=== PATIENT | male | born 1950 | race Caucasian/White ===

== ENCOUNTER 2019-09-07 14:40 | Outpatient (CLI) | payer OTHER, SELFPAY ==
--- NOTE | ~2019-09-07 | XR_ITS ---
EXAMINATION: XR sacroiliac joints min 3V DATE: 09/07/2019 16:02 INDICATION: Sacral pain. TECHNIQUE: 3 views of the sacroiliac joints were obtained. COMPARISON: CT 05/19/2019 FINDINGS: There is lumbar levocurvature. No fracture. There is mild lumbar spondylosis. There is mild osteoarthritis of the hips. The sacroiliac joints are normal. Surgical clips overlie left pelvis. IMPRESSION: 1. Normal sacroiliac joints. No evidence of inflammatory arthropathy. Reviewed, dictated and finalized at location A. CLEANING MANAGER
== END 2019-09-07 14:41 | disposition home or self-care (01) ==
LOC: ANHIMG 14:41
PROVIDERS: PCP Family Medicine; Visit Provider Family Medicine
DX: M53.3 Sacrococcygeal disorders, not elsewhere classified (principal)
CPT/HCPCS: 72202

== ENCOUNTER 2019-10-29 13:16 | Outpatient (CLI) | payer OTHER, SELFPAY ==
[2019-10-29 13:37] LABS: Basophils Absolute Auto 0.1 K/mm3 (0.0-0.1); Basophils Percent Auto 0.6 % (0.2-1.2); Eosinophils Percent Auto 0.2 % (0-4.4); Hematocrit 42.5 % (42.0-52.0); Hemoglobin 14.3 g/dL (14.0-18.0); Immature Granulocyte Absolute 0.01 K/mm3 (0.00-0.031); Immature Granulocyte Percent A 0.1 % (0-0.5); Lymphocytes Absolute Auto 5.81 K/mm3 (0.9-3.2); Lymphocytes Percent Auto 62.8 % (18.3-44.2); Mean Corpuscular HGB Conc 33.6 g/dl (32-36); Mean Corpuscular Hemoglobin 30.7 pg (26-34); Mean Corpuscular Volume 91.2 fl (80-100); Mean Platelet Volume 8.8 fl (7.4-10.4); Monocytes Absolute Auto 0.6 K/mm3 (0.1-0.6); Monocytes Percent Auto 6.8 % (2.6-8.5); Neutrophils Absolute Auto 2.7 K/mm3 (1.3-6.7); Neutrophils Percent Auto 29.5 % (45.5-73.1); Platelet Count Result 204 k/mm3 (150-375); Red Blood Count 4.66 M/mm3 (4.6-6.20); Red Cell Distribution Width 12.3 % (11.5-14.5); White Blood Count 9.3 K/mm3 (4.5-10.0)
[2019-10-29 15:58] LABS: Alanine Aminotransferase 29 U/L (4-50); Albumin Level 4.1 g/dL (3.5-5.1); Alkaline Phosphatase 63 U/L (38-126); Aspartate Amino Transferase 46 U/L (17-59); Bilirubin,Total 0.5 mg/dL (0.2-1.3); Blood Urea Nitrogen 18 mg/dL (9-20); Calcium 9.4 mg/dL (8.4-10.2); Carbon Dioxide 28 mmol/L (22-30); Chloride 104 mmol/L (98-107); Estimated Glomerular Filt Rate > 60; Glucose 91 mg/dL (75-110); Lactate Dehydrogenase 484 U/L (313-618); Potassium 4.2 mmol/L (3.4-5.0); Sodium 140 mmol/L (137-145)
== END 2019-10-29 13:17 | disposition home or self-care (01) ==
PROVIDERS: PCP Family Medicine; Visit Provider Internal Medicine Hematology & Oncology
DX: C91.Z0 Other lymphoid leukemia not having achieved remission (principal)
CPT/HCPCS: 36415; 80053; 83615; 85025

== ENCOUNTER 2020-05-01 16:57 | Emergency (ER) | payer OTHER, SELFPAY ==
[2020-05-01] VITALS (13 sets, daily range): BP systolic 122–181; BP diastolic 74–99; PULSE 81–125; RESP 14–27; TEMP 36.8–38.6; O2SAT 95–99
--- NOTE | ~2020-05-01 | XR_ITS ---
EXAMINATION: XR chest 1V portable INDICATION: Fever and body aches TECHNIQUE: Portable AP chest at 1835 hours COMPARISON: None available FINDINGS: The lungs are free of acute opacities. There is no pleural effusion or pneumothorax. The ca rdiomediastinal silhouette is normal. IMPRESSION: 1. No acute cardiopulmonary abnormality. Reviewed, dictated and finalized at location A.
[2020-05-01 17:17] LABS: Basophils Absolute Auto 0.1 K/mm3 (0.0-0.1); Basophils Percent Auto 0.4 % (0.2-1.2); Hematocrit 43.9 % (42.0-52.0); Immature Granulocyte Absolute 0.06 K/mm3 (0.00-0.031); Immature Granulocyte Percent A 0.5 % (0-0.5); Lymphocytes Absolute Auto 3.34 K/mm3 (0.9-3.2); Lymphocytes Percent Auto 27.2 % (18.3-44.2); Mean Corpuscular HGB Conc 34.2 g/dl (32-36); Mean Corpuscular Hemoglobin 30.8 pg (26-34); Mean Corpuscular Volume 90.1 fl (80-100); Mean Platelet Volume 9.1 fl (7.4-10.4); Monocytes Absolute Auto 0.6 K/mm3 (0.1-0.6); Neutrophils Absolute Auto 8.2 K/mm3 (1.3-6.7); Neutrophils Percent Auto 66.9 % (45.5-73.1); Platelet Count Result 208 k/mm3 (150-375); Red Blood Count 4.87 M/mm3 (4.6-6.20); Red Cell Distribution Width 12.1 % (11.5-14.5); White Blood Count 12.3 K/mm3 (4.5-10.0)
[2020-05-01 17:31] LABS: Alanine Aminotransferase 36 U/L (4-50); Albumin Level 4.6 g/dL (3.5-5.1); Alkaline Phosphatase 64 U/L (38-126); Anion Gap 9 mmol/L (8-16); Aspartate Amino Transferase 33 U/L (17-59); Bilirubin,Total 0.8 mg/dL (0.2-1.3); Blood Urea Nitrogen 15 mg/dL (9-20); Calcium 9.6 mg/dL (8.4-10.2); Carbon Dioxide 31 mmol/L (22-30); Chloride 102 mmol/L (98-107); Estimated CRCL calculation 67 ml/min; Estimated Glomerular Filt Rate > 60; Glucose 142 mg/dL (75-110); Sodium 142 mmol/L (137-145)
--- NOTE | 2020-05-01 18:01 | ECG_ITS ---
Measurements Intervals [place] Rate: 101 P: 64 PA: 178 QRS: 27 QRSD: 89 T: 52 QT: 326 QTc: 423 Interpretive Statements SINUS TACHYCARDIA BORDERLINE ECG Electronically Signed On 05-02-2020 12:04:51 CDT by Cyril Ngo D.O.
--- NOTE | 2020-05-01 18:16 | ED.GENADULT ---
HPI - General Adult General Chief complaint: Fever Stated complaint: body aches/fever 100.7 Time Seen by Provider: 05/01/20 17:56 Source: patient History of Present Illness HPI narrative: Patient is a 70 y/o male complaining of fever starting 2 days ago. He states that his temp was 100.7 earlier. He took Ibuprofen, which lower his temperature. He also has bodyache, dizziness. He denies any cough, sorethroat, vomiting, diarrhea or dysuria. Related Data Home Medications Medication Instructions Recorded Confirmed ketoconazole 2 % topical cream 1 applic TOPICAL BID 09/07/19 vitamin B complex [B 1 tablet PO DAILY 05/01/20 05/01/20 Complex-Vitamin B12] Allergies Allergy/AdvReac Type Severity Reaction Status Date / Time No Known Drug Allergies Allergy Unknown Unknown Verified 05/01/20 18:09 Review of Systems Constitutional: Constitutional: Reports chills, Reports fever(s), Reports headache(s), Reports malaise and Denies weakness Eyes: Eyes: Denies blurry vision ENT: Denies headache(s) and Denies neck pain Cardiovascular: Cardiovascular: Denies chest pain and Denies dyspnea Respiratory: Respiratory: Denies cough and Denies dyspnea Gastrointestinal: Gastrointestinal: Denies abdominal pain, Denies diarrhea, Denies nausea and Denies vomiting Genitourinary: Genitourinary: Denies hematuria and Denies dysuria Musculoskeletal: Musculoskeletal: Reports as per HPI, Denies back pain, Reports myalgias and Denies neck pain Neurologic: Denies headache(s) and Denies weakness [facility] Past Medical History Medical History Atypical lymphocytosis Diet-controlled type 2 diabetes mellitus GERD without esophagitis Surgical History Surgical History History of hernia repair Family History Family History Sibling Family history of malignant neoplasm Mother Family history of kidney disease Family history of heart disease in male family member before age 55 Hypertension Father Family history of emphysema Social History Social History Smoking status: Never smoker Second hand tobacco smoke exposure: No Alcohol intake: current Substance use: never Substance use type: does not use Additional living arrangements comments: Lives with girlfriend. Gender identity (if verbalized by the patient): Male Exam Const: General: no acute distress and well developed Orientation/consciousness: oriented to person, oriented to place, oriented to time and patient oriented x3 HENMT: Head: normocephalic Ears: external ears normal General nose exam: Normal external nose present Eyes: General: appearance normal, both eyes and all related structures Conjunctivae: conjunctivae normal Neck: Neck: normal visual inspection and full ROM Chest: Chest palpation & inspection: normal inspection of the chest and no tenderness Resp: Effort & Inspection: normal respiratory effort Auscultation: clear to auscultation bilaterally Cardio: Rate: tachycardic Rhythm: regular rhythm GI: GI Palp: No abdominal tenderness and Yes Soft to palpation Skin: General skin exam: normal color and turgor normal Neuro: General: oriented to person, oriented to place, oriented to time and patient oriented x3 Cognition (Neuro): normal cognition Extrem: General: normal to inspection, full ROM and no pedal edema Psych: Appearance: grossly normal Mental Status: mental status grossly normal Affect: normal affect Course Consultations Consultation #1: Discussed with Dr. Chen, who agrees with plan for discharge. He will follow up. Date: 05/01/20 Time: 20:47 Vital Signs Vital signs: Vital Signs Temperature 37.4 C 05/01/20 17:03 Pulse Rate 120 H 05/01/20 17:03 Respiratory Rate 16 05/01/20 17:03 Blood Pressure 181/99 H 05/01/20 17
[2020-05-01] MEDS: SODIUM CHLORIDE 0.9% IV 1,000 ML 999 ML IV CONT (19:05)
[2020-05-01] MEDS: ACETAMINOPHEN 325 MG TABLET 650 MG PO (19:05)
--- NOTE | 2020-05-01 19:09 | PC.NURSE ---
Assumed care of pt. at this time.Report from LENNY carlson
[2020-05-01 19:53] LABS: Add Urine Microscopic? NO; Appearance Urine Clear (Clear); Bilirubin Urine Negative (Negative); Blood Urine Negative (Negative); Color Urine Yellow (Yellow); Glucose Urine UA Negative (Negative); Ketones Urine Negative (Negative); Leukocyte Esterase Ur Negative LEU/UL (Negative); Nitrate Urine Negative (Negative); Protein Urine Negative (Negative); Specific Grav Ur 1.013 (1.001-1.035); Urobilinogen Urine Negative mg/dL (<2.0)
[2020-05-02 13:49] LABS: SARS-CoV-2 RNA PCR Negative
== END 2020-05-01 21:50 | disposition home or self-care (01) ==
PROVIDERS: Emergency Provider Emergency Medicine; PCP Family Medicine
DX: R50.9 Fever, unspecified (principal); Z20.828 Contact with and (suspected) exposure to other viral communicable diseases; E11.9 Type 2 diabetes mellitus without complications; K21.9 Gastro-esophageal reflux disease without esophagitis
CPT/HCPCS: 36415; 71045; 80053; 81003; 83605; 85025; 87040; 87635; 93005; 96360; 99283; A9270; C9803; J7030; U0003

== ENCOUNTER 2020-08-01 13:34 | Outpatient (CLI) | payer OTHER, SELFPAY ==
[2020-08-01 13:59] LABS: Basophils Percent Auto 0.4 % (0.2-1.2); Eosinophils Percent Auto 0.1 % (0-4.4); Hematocrit 41.7 % (42.0-52.0); Hemoglobin 14.3 g/dL (14.0-18.0); Immature Granulocyte Absolute 0.02 K/mm3 (0.00-0.031); Immature Granulocyte Percent A 0.3 % (0-0.5); Lymphocytes Absolute Auto 2.72 K/mm3 (0.9-3.2); Lymphocytes Percent Auto 36.5 % (18.3-44.2); Mean Corpuscular HGB Conc 34.3 g/dl (32-36); Mean Corpuscular Hemoglobin 30.3 pg (26-34); Mean Corpuscular Volume 88.3 fl (80-100); Mean Platelet Volume 8.9 fl (7.4-10.4); Monocytes Absolute Auto 0.5 K/mm3 (0.1-0.6); Monocytes Percent Auto 6.6 % (2.6-8.5); Neutrophils Absolute Auto 4.2 K/mm3 (1.3-6.7); Neutrophils Percent Auto 56.1 % (45.5-73.1); Platelet Count Result 211 k/mm3 (150-375); Red Blood Count 4.72 M/mm3 (4.6-6.20); Red Cell Distribution Width 12.1 % (11.5-14.5); White Blood Count 7.5 K/mm3 (4.5-10.0)
[2020-08-01 16:07] LABS: Alanine Aminotransferase 29 U/L (4-50); Albumin Level 4.1 g/dL (3.5-5.1); Alkaline Phosphatase 70 U/L (38-126); Anion Gap 6 mmol/L (8-16); Aspartate Amino Transferase 32 U/L (17-59); Bilirubin,Total 0.5 mg/dL (0.2-1.3); Blood Urea Nitrogen 14 mg/dL (9-20); Calcium 9.5 mg/dL (8.4-10.2); Carbon Dioxide 30 mmol/L (22-30); Chloride 101 mmol/L (98-107); Estimated Glomerular Filt Rate > 60; Glucose 195 mg/dL (75-110); Lactate Dehydrogenase 483 U/L (313-618); Potassium 4.3 mmol/L (3.4-5.0); Sodium 137 mmol/L (137-145)
== END 2020-08-01 13:35 | disposition home or self-care (01) ==
PROVIDERS: PCP Family Medicine; Visit Provider Internal Medicine Hematology & Oncology
DX: C91.Z0 Other lymphoid leukemia not having achieved remission (principal)
CPT/HCPCS: 36415; 80053; 83615; 85025

== ENCOUNTER 2020-08-04 21:40 | Observation (INO) | payer OTHER, SELFPAY ==
--- NOTE | ~2020-08-04 | XR_ITS ---
EXAMINATION: XR chest 2V EXAM DATE: 08/04/2020 22:10 INDICATION: Midsternal to left-sided chest pain, left arm tingling. TECHNIQUE: Frontal and lateral projections of the chest obtained and reviewed. Comparison is made to prior examination from 05/01/2020. FINDINGS: The lungs are clear. There are no pleural effusions. The cardiomediastinal silhouette is within normal limits. There is no pneumothorax suspected. The bones and soft tissues are unremarkab le. IMPRESSION: No acute cardiopulmonary findings. Reviewed, dictated and finalized at location A. Y SPECIALIST
[2020-08-04 21:41] VITALS: BP 180/97; PULSE 98; RESP 17; TEMP 37; O2SAT 98
--- NOTE | 2020-08-04 21:44 | ECG_ITS ---
Measurements Intervals [place] Rate: 91 P: 65 TX: 191 QRS: 34 QRSD: 84 T: 53 QT: 351 QTc: 433 Interpretive Statements SINUS RHYTHM BASELINE WANDER- AVR, AVL, AVF NORMAL ECG Electronically Signed On 08-05-2020 7:23:23 CHANGE RELEASE MANAGER by Cyril Ngo D.O.
[2020-08-04 21:57] VITALS: PULSE 91
--- NOTE | 2020-08-04 21:59 | ED.CHESTPAIN ---
HPI - Chest Pain General Chief Complaint: Chest Pain Stated Complaint: chest pain Time Seen by Provider: 08/04/20 21:50 Source: patient Mode of arrival: ambulatory Limitations: no limitations History of Present Illness HPI narrative: Patient 7-year-old male complaining of sudden onset of chest pain, tightness, midsternal, was 7 out of 10 currently at 2 out of 10, radiating to left upper extremity that started approximately 45 minutes prior to arrival. Patient denies any shortness of breath, abdominal pain, nausea, vomiting, diaphoresis, fever or chills. Related Data Home Medications Medication Instructions Recorded Confirmed ketoconazole 2 % topical cream 1 applic TOPICAL BID 09/07/19 vitamin B complex [B 1 tablet PO DAILY 05/01/20 05/01/20 Complex-Vitamin B12] pantoprazole PO 08/04/20 08/04/20 tobramycin-dexamethasone [TobraDex] 08/04/20 Allergies Allergy/AdvReac Type Severity Reaction Status Date / Time No Known Drug Allergies Allergy Unknown Unknown Verified 08/04/20 21:43 Review of Systems Review of Systems: All systems reviewed & are unremarkable except as noted in HPI and below Constitutional: Constitutional: Denies body ache(s), Denies chills, Denies excessive sweating, Denies fatigue, Denies fever(s), Denies headache(s), Denies lethargy, Denies malaise, Denies weakness and Denies weight loss Eyes: Eyes: Denies blurry vision, Denies change in vision and Denies loss of vision ENT: Denies dizziness, Denies ear discharge, Denies headache(s), Denies lip swelling, Denies epistaxis, Denies nasal congestion, Denies neck pain, Denies throat swelling and Denies tongue swelling Cardiovascular: Cardiovascular: Denies diaphoresis, Denies rapid heart rate, Denies edema, Denies irregular heart rhythm, Denies lightheadedness, Denies palpitations, Denies dyspnea and Denies dyspnea on exertion Respiratory: Respiratory: Denies chest congestion, Denies cough, Denies hemoptysis, Denies dyspnea and Denies dyspnea on exertion Gastrointestinal: Gastrointestinal: Denies abdominal pain, Denies melena, Denies hematochezia, Denies diarrhea, Denies nausea, Denies vomiting and Denies hematemesis Musculoskeletal: Musculoskeletal: Denies abnormal gait, Denies deformity, Denies joint swelling, Denies limited range of motion, Denies neck pain and Denies numbness Neurologic: Denies Abnormal speech present, Denies abnormal gait, Denies confusion, Denies dizziness, Denies headache(s), Denies focal weakness, Denies loss of vision, Denies numbness, Denies Other visual disturbances, Denies Sensory deficit (Neuro) and Denies weakness Psychiatric: Psychiatric: Denies confusion, Denies depression, Denies auditory hallucinations, Denies homicidal ideation and Denies suicidal ideation Endocrine: Endocrine: Denies cold intolerance, Denies excessive sweating, Denies fatigue, Denies heat intolerance and Denies palpitations Hematologic/Lymphatic: Hematologic/Lymphatic: Denies easy bleeding and Denies easy bruising Allergic/Immunologic: Allergic/Immunologic: Denies lip swelling, Denies throat swelling and Denies tongue swelling PMFSH Past Medical History Medical History (Updated 08/04/20 @ 23:18 by Zeke Jay MD) Atypical lymphocytosis Diet-controlled type 2 diabetes mellitus GERD without esophagitis Surgical History Surgical History History of hernia repair Family History Family History Sibling Family history of malignant neoplasm Mother Family history of kidney disease Family history of heart disease in male family member before age 55 Hypertension Father Family history of emphysema Social History Social History Smoking status: Never smoker Second hand tobacco smoke exposure: No Alcohol intake: current Substance use: never Substance use type: does not use
[2020-08-04 22:05] LABS: Basophils Absolute Auto 0.1 K/mm3 (0.0-0.1); Basophils Percent Auto 0.5 % (0.2-1.2); Eosinophils Percent Auto 0.4 % (0-4.4); Hematocrit 42.5 % (42.0-52.0); Hemoglobin 14.5 g/dL (14.0-18.0); Immature Granulocyte Absolute 0.02 K/mm3 (0.00-0.031); Immature Granulocyte Percent A 0.2 % (0-0.5); Lymphocytes Absolute Auto 6.22 K/mm3 (0.9-3.2); Lymphocytes Percent Auto 59.5 % (18.3-44.2); Mean Corpuscular HGB Conc 34.1 g/dl (32-36); Mean Corpuscular Hemoglobin 30.4 pg (26-34); Mean Corpuscular Volume 89.1 fl (80-100); Monocytes Absolute Auto 0.7 K/mm3 (0.1-0.6); Monocytes Percent Auto 6.7 % (2.6-8.5); Neutrophils Absolute Auto 3.4 K/mm3 (1.3-6.7); Neutrophils Percent Auto 32.7 % (45.5-73.1); Platelet Count Result 211 k/mm3 (150-375); Red Blood Count 4.77 M/mm3 (4.6-6.20); Red Cell Distribution Width 12.1 % (11.5-14.5); White Blood Count 10.5 K/mm3 (4.5-10.0)
[2020-08-04 22:12] LABS: Prothrombin Time 13.7 Seconds (11.1-14.7)
[2020-08-04 22:13] LABS: Partial Thromboplastin Time 27.9 SECONDS (22.3-36.8)
[2020-08-04 22:14] LABS: Anion Gap 9 mmol/L (8-16); Blood Urea Nitrogen 24 mg/dL (9-20); Calcium 9.2 mg/dL (8.4-10.2); Carbon Dioxide 29 mmol/L (22-30); Chloride 100 mmol/L (98-107); Estimated CRCL calculation 67 ml/min; Estimated Glomerular Filt Rate > 60; Glucose 202 mg/dL (75-110); Potassium 3.8 mmol/L (3.4-5.0); Sodium 138 mmol/L (137-145)
[2020-08-04 22:26] LABS: Troponin I < 0.012 ng/mL (0.000-0.034)
[2020-08-04] MEDS: ASPIRIN 81 MG CHEWABLE TABLET 324 MG PO (22:37)
[2020-08-04 22:40] VITALS: BP 143/97; PULSE 79; RESP 15; O2SAT 97
[2020-08-04 23:17] VITALS: PULSE 84
[2020-08-04] MEDS: METOPROLOL TARTRATE 50 MG TAB PO (23:17)
[2020-08-04] MEDS: NITROGLYCERIN OINTMENT 1 INCH DOSE TRANSDERM (23:18)
[2020-08-04 23:38] VITALS: BP 118/86; PULSE 84; RESP 20; O2SAT 96
[2020-08-05] VITALS (8 sets, daily range): BP systolic 86–143; BP diastolic 63–86; PULSE 58–81; RESP 16–20; TEMP 36.2–36.4; O2SAT 95–99; BMI 25.7
--- NOTE | 2020-08-05 01:17 | ADMGEN ---
This patient, James Donovan, was [facility] at 0030. Patient oriented to hospital policies and general routines including ID bracelet, bed and alarms, pain management, procedures, bathroom and other care routines, personal items, smoking policy, and room service/diet. Information on how to activate the Rapid Response Team has been discussed. Patient is encouraged to report perceived risks to care and to ask questions if they do not understand what they are told or what they should do.
[2020-08-05 02:01] LABS: Troponin I < 0.012 ng/mL (0.000-0.034)
[2020-08-05 04:35] LABS: Troponin I < 0.012 ng/mL (0.000-0.034)
--- NOTE | 2020-08-05 09:49 | PM.IMHP ---
H&P: HPI History of Present Illness Date/Time: 08/05/20 09:49 Chief Complaint: Chest pain Narrative: James Donovan is a 70 year old male without any previous cardiovascular history who began to experience significant chest pain yesterday evening about an hour to 2 hours after eating his evening meal. The patient states he has had symptoms like this for a number of years that have been attributed to dyspepsia and will typically occur in the postprandial fashion like this and respond to antacids. This particular episode was more severe he took some antacids and waited about an hour he was not experiencing any relief so he decided he better come into the emergency room for further evaluation. In the emergency room his symptoms were spontaneous resolving before he was really given anything additional for treatment. His electrocardiogram was unremarkable his laboratory data including troponin levels were unremarkable and he was admitted to the [facility] for observation overnight. He has remained asymptomatic and feels well this morning. His troponin levels have been negative x3 sets. Patient is a fairly active gentleman he does exercise at a local fitness center when the pandemic was not an issue. He is able to exercise vigorously without any chest pain exertional dyspnea or further symptomatology. He has denies any sense of orthopnea PND or edema palpitations or syncope. He has never had any cardiac problems in the past. He has no history of hypertension and or dyslipidemia. He states he has ?a ?borderline diabetes?. He has modest elevation in his hemoglobin A1c in its physicians have recommended dietary modification for this. Patient is a retired [employer] of an [employer] Review of Systems Constitutional: Constitutional: Reports no additional constitutional complaints Eyes: Eyes: Reports no additional eye complaints ENT: Reports system reviewed and no additional complaints, except as documented Cardiovascular: Cardiovascular: Reports as per HPI Respiratory: Respiratory: Reports no additional respiratory complaints Gastrointestinal: Gastrointestinal: Reports no additional gastrointestinal complaints Musculoskeletal: Musculoskeletal: Reports no additional musculoskeletal complaints Integumentary/Breasts: Skin/Breast: Reports system reviewed and no additional complaints, except as docu Neurologic: Reports system reviewed and no additional complaints, except as documented PMF Past Medical History Medical History (Updated 08/04/20 @ 23:18 by Zeke Jay MD) Atypical lymphocytosis Diet-controlled type 2 diabetes mellitus GERD without esophagitis Surgical History Surgical History History of hernia repair Family History Family History Sibling Family history of malignant neoplasm Mother Family history of kidney disease Family history of heart disease in male family member before age 55 Hypertension Father Family history of emphysema Social History Social History Smoking status: Never smoker Second hand tobacco smoke exposure: No Alcohol intake: current Substance use: never Substance use type: does not use Additional living arrangements comments: Lives with girlfriend. Gender identity (if verbalized by the patient): Male Meds Home Medications and Allergies Home Medications Medication Instructions Recorded Confirmed Type ketoconazole 2 % topical cream 1 applic TOPICAL BID 09/07/19 08/05/20 History vitamin B complex [B 1 tablet PO DAILY 05/01/20 08/05/20 History Complex-Vitamin B12] pantoprazole 20 mg tablet,delayed 20 mg PO QAM #90 tablet 06/28/20 08/05/20 Rx release Allergies Allergy/AdvReac Type Severity Reaction Status Date / Time No Known Drug Allergies Allergy Unknown Unknown Verified 08/04
--- NOTE | 2020-08-05 09:56 | PM.DS ---
DS: Admitting Diagnosis Admitting Diagnosis Admitting Diagnosis: Chest pain DS: Discharge Diagnosis Discharge Diagnosis (1) Chest pain: Qualifiers: Chest pain type: unspecified Qualified Code(s): R07.9 - Chest pain, unspecified Code(s): R07.9 - Chest pain, unspecified Status: Acute DS: Summary Hospital Course Reason for hospitalization: Chest pain Hospital Course: This is a 70-year-old man with no history of cardiac problems in the past he came to the emergency room with an abrupt episode of chest pain that began an hour to after eating his evening meal. The symptoms were resolving spontaneously in the emergency room as he was evaluated last evening. Electrocardiogram looked normal as did his troponin level. He is an active gentleman who exercises regularly and reports no side history of ischemic type chest pain in exertional fashion. Is biomarkers remain negative and he is asymptomatic this morning. The patient is being discharged home for follow-up with his PCP. At this point since his history is atypical and is risk factor profile is low we are not scheduling outpatient stress testing. Status at Discharge Functional status at discharge: independent ambulation Time Spent with Patient Time attestation: Total time spent providing and/or coordinating discharge services: Time spent: Less than 30 minutes Exam Const: General: comfortable and no acute distress HENMT: Mouth: Yes moist mucous membranes Eyes: Sclera: sclerae normal Pupils: Equal, round and reactive pupils present Neck: Neck: supple and no JVD Thyroid: thyroid normal Other: Carotid pulses normal bilaterally Resp: Effort & Inspection: normal respiratory effort Auscultation: clear to auscultation bilaterally Cardio: Rate: regular rate Rhythm: regular rhythm Other: No murmur no gallop no rub GI: GI Palp: Yes Soft to palpation Auscultation: normal bowel sounds Extrem: General: normal to inspection DS: Data Data Completed and Pending Labs on day of discharge: Labs from last 24 hours 08/05/20 08/05/20 08/04/20 03:50 01:05 21:54 WBC RBC Hgb Hct MCV MCH MCHC RDW Plt Count MPV Immature Gran % (Auto) Neut % (Auto) Lymph % (Auto) [place] % (Auto) Eos % (Auto) Baso % (Auto) Lymph # (Auto) [place] # (Auto) Eos # (Auto) Baso # (Auto) Abs Immat Gran (auto) Absolute Neuts (auto) Absolute Nucleated RBC Nucleated RBC % PT INR APTT Sodium 138 Potassium 3.8 Chloride 100 Carbon Dioxide 29 Anion Gap 9 BUN 24 H D Creatinine 0.80 Estim Creat Clear Calc 67 Estimated GFR > 60 Glucose 202 H Calcium 9.2 Troponin I < 0.012 < 0.012 < 0.012 08/04/20 08/04/20 21:54 21:54 WBC 10.5 H RBC 4.77 Hgb 14.5 Hct 42.5 MCV 89.1 MCH 30.4 MCHC 34.1 RDW 12.1 Plt Count 211 MPV 9.0 Immature Gran % (Auto) 0.2 Neut % (Auto) 32.7 L Lymph % (Auto) 59.5 H [place] % (Auto) 6.7 Eos % (Auto) 0.4 Baso % (Auto) 0.5 Lymph # (Auto) 6.22 H [place] # (Auto) 0.7 H Eos # (Auto) 0.0 Baso # (Auto) 0.1 Abs Immat Gran (auto) 0.02 Absolute Neuts (auto) 3.4 Absolute Nucleated RBC 0.0 Nucleated RBC % 0.0 PT 13.7 INR 1.0 APTT 27.9 Sodium Potassium Chloride Carbon Dioxide Anion Gap BUN Creatinine Estim Creat Clear Calc Estimated GFR Glucose Calcium Troponin I Discharge Plan Discharge Attending physician on discharge: Wilson Coelho Discharging Clinician: Wilson Coelho Patient Disposition: Home, Self-Care Activity: unlimited Diet: regular Discharge Instructions: Follow-up with primary care physician as scheduled Patient Instructions: Antibiotic Form Stand Alone Forms: General Discharge Information Follow-up/Referrals: Carla Ashraf MD [Primary Care Provider] - Discharge Medications: Continued ke
--- NOTE | 2020-08-05 11:38 | PC.NURSE ---
1145 Pt ate light breakfast without nausea or emesis. Discharge instructions reviewed with patient with stated understanding. Iv D/c'd - catheter intact. No redness or swelling at site.
--- NOTE | 2020-08-05 11:59 | PC.NURSE ---
1150 - Pt ambulated to front door to discharge to waiting in vehicle. discharged to home
== END 2020-08-05 12:01 | disposition home or self-care (01) ==
LOC: ANHED 23:18 → ANHCPC 08-05 00:14
PROVIDERS: Emergency Medicine; Admitting Provider Specialist; Emergency Provider Emergency Medicine; PCP Physician Assistant; Visit Provider Specialist
DX: R07.9 Chest pain, unspecified (principal); R03.0 Elevated blood-pressure reading, without diagnosis of hypertension; E11.9 Type 2 diabetes mellitus without complications; K21.9 Gastro-esophageal reflux disease without esophagitis
CPT/HCPCS: 36415; 71046; 80048; 84484; 85025; 85610; 85730; 93005; 99285; A9270; G0378

== ENCOUNTER → 2021-06-25 10:36 | Outpatient (CLI) | payer OTHER, SELFPAY ==
--- NOTE | ~2021-06-25 | XR_ITS ---
EXAMINATION: XR sternum min 2V DATE: 06/25/2021 11:49 INDICATION: Acquired deformity of chest and rib. The inferior aspect of the sternum is getting larger according to the patient. TECHNIQUE: 2 views of the sternum were obtained. COMPARISON: Chest 2 views 08/04/20 FINDINGS: Bone alignment is normal. The inferior xiphoid curves anteriorly, which is a normal variant and is chronic. IMPRESSION: 1. Prominent anterior curvature of the inferior xiphoid, which is a normal variant. Reviewed, dictated and finalized at location A. DER BEAM IMPRESSION: 1. Prominent anterior curvature of the inferior xiphoid, which is a normal vari ant.
== END ==
PROVIDERS: PCP Physician Assistant; Visit Provider Physician Assistant
DX: M95.4 Acquired deformity of chest and rib (principal)
CPT/HCPCS: 71120

== ENCOUNTER 2021-09-25 09:27 | Outpatient (CLI) | payer OTHER, SELFPAY ==
[2021-09-25 09:43] LABS: Basophils Percent Auto 0.5 % (0.2-1.2); Eosinophils Percent Auto 0.3 % (0-4.4); Hematocrit 43.3 % (42.0-52.0); Hemoglobin 14.3 g/dL (14.0-18.0); Immature Granulocyte Absolute 0.02 K/mm3 (0.00-0.031); Immature Granulocyte Percent A 0.3 % (0-0.5); Lymphocytes Absolute Auto 4.09 K/mm3 (0.9-3.2); Lymphocytes Percent Auto 54.7 % (18.3-44.2); Mean Corpuscular Hemoglobin 30.7 pg (26-34); Mean Corpuscular Volume 92.9 fl (80-100); Mean Platelet Volume 8.9 fl (7.4-10.4); Monocytes Absolute Auto 0.4 K/mm3 (0.1-0.6); Monocytes Percent Auto 5.7 % (2.6-8.5); Neutrophils Absolute Auto 2.9 K/mm3 (1.3-6.7); Neutrophils Percent Auto 38.5 % (45.5-73.1); Platelet Count Result 194 k/mm3 (150-375); Red Blood Count 4.66 M/mm3 (4.6-6.20); Red Cell Distribution Width 12.1 % (11.5-14.5); White Blood Count 7.5 K/mm3 (4.5-10.0)
[2021-09-25 09:46] LABS: Blood Urea Nitrogen 16 mg/dL (8-26); Carbon Dioxide 27 mmol/L (22-30); Chloride 103 mmol/L (98-109); Estimated Glomerular Filt Rate > 60; Glucose 143 mg/dL (70-105); Sodium 143 mmol/L (138-146)
[2021-09-25 14:52] LABS: Alanine Aminotransferase 24 U/L (4-50); Albumin Level 4.2 g/dL (3.5-5.1); Alkaline Phosphatase 66 U/L (38-126); Anion Gap 6 mmol/L (8-16); Aspartate Amino Transferase 62 U/L (17-59); Bilirubin,Total 0.7 mg/dL (0.2-1.3); Blood Urea Nitrogen 16 mg/dL (9-20); Carbon Dioxide 26 mmol/L (22-30); Chloride 106 mmol/L (98-107); Estimated Glomerular Filt Rate > 60; Glucose 142 mg/dL (65-110); Potassium 4.1 mmol/L (3.4-5.0); Sodium 138 mmol/L (137-145)
== END 2021-09-25 09:28 | disposition home or self-care (01) ==
LOC: ANHLAB 09:27
PROVIDERS: PCP Physician Assistant; Visit Provider Internal Medicine Hematology & Oncology
DX: C91.Z0 Other lymphoid leukemia not having achieved remission (principal)
CPT/HCPCS: 36415; 80053; 85025

== ENCOUNTER 2022-09-25 09:50 | Outpatient (CLI) | payer OTHER, SELFPAY ==
[2022-09-25 10:07] LABS: Basophils Percent Auto 0.4 % (0.2-1.2); Eosinophils Percent Auto 0.1 % (0-4.4); Hematocrit 41.6 % (42.0-52.0); Hemoglobin 14.1 g/dL (14.0-18.0); Immature Granulocyte Absolute 0.02 K/mm3 (0.00-0.031); Immature Granulocyte Percent A 0.3 % (0-0.5); Mean Corpuscular HGB Conc 33.9 g/dl (32-36); Mean Corpuscular Hemoglobin 30.5 pg (26-34); Mean Corpuscular Volume 89.8 fl (80-100); Mean Platelet Volume 8.7 fl (7.4-10.4); Monocytes Absolute Auto 0.4 K/mm3 (0.1-0.6); Monocytes Percent Auto 5.9 % (2.6-8.5); Neutrophils Absolute Auto 2.4 K/mm3 (1.3-6.7); Neutrophils Percent Auto 33.3 % (45.5-73.1); Platelet Count Result 199 k/mm3 (150-375); Red Blood Count 4.63 M/mm3 (4.6-6.20); Red Cell Distribution Width 12.4 % (11.5-14.5); White Blood Count 7.3 K/mm3 (4.5-10.0)
[2022-09-25 10:15] LABS: Blood Urea Nitrogen 15 mg/dL (8-26); Carbon Dioxide 27 mmol/L (22-30); Chloride 105 mmol/L (98-109); Estimated Glomerular Filt Rate > 60; Glucose 142 mg/dL (70-105); Ionized Calcium (POC) 1.26 mmol/L (1.11-1.31); Potassium 4.3 mmol/L (3.5-4.9); Sodium 142 mmol/L (138-146)
[2022-09-25 17:07] LABS: Alanine Aminotransferase 23 U/L (6-50); Albumin Level 4.2 g/dL (3.5-5.1); Alkaline Phosphatase 68 U/L (38-126); Anion Gap 5 mmol/L (8-16); Aspartate Amino Transferase 39 U/L (17-59); Bilirubin,Total 0.6 mg/dL (0.2-1.3); Blood Urea Nitrogen 16 mg/dL (9-20); Carbon Dioxide 28 mmol/L (22-30); Chloride 107 mmol/L (98-107); Estimated Glomerular Filt Rate > 60; Glucose 133 mg/dL (65-110); Lactate Dehydrogenase 199 U/L (120-246); Potassium 4.4 mmol/L (3.4-5.0); Sodium 140 mmol/L (137-145)
== END 2022-09-25 09:51 | disposition home or self-care (01) ==
PROVIDERS: PCP Family Medicine; Visit Provider Internal Medicine Hematology & Oncology
DX: C91.Z0 Other lymphoid leukemia not having achieved remission (principal)
CPT/HCPCS: 36415; 80047; 80053; 83615; 85025

== ENCOUNTER 2022-10-02 13:41 | Outpatient (CLI) | payer OTHER, SELFPAY ==
--- NOTE | ~2022-10-02 | XR_ITS ---
Thoracic spine: Clinical Indication: Pain AP and lateral views were performed. No fracture is seen. There is normal alignment of the vertebrae. The intervertebral disc spaces appe ar normal. Paravertebral soft tissues appear normal. Impression: No significant abnormalities noted. Reviewed, dictated and finalized at [facility]. EN FOODS MANAGER Impression: No significant abnormalities noted.
--- NOTE | ~2022-10-02 | XR_ITS ---
Lumbosacral Spine: AP, oblique, and lateral views Clinical History: Pain Findings: The normal lordotic curve is maintained. The vertebral bodies and posterior elements are i ntact. The intervertebral disc spaces are preserved. The sacroiliac joints are normally outlined. Impression: No significant abnormality. Reviewed, dictated and finalized at [facility]. INE OPERATOR FARMWORKER Impression: No significant abnormality.
== END 2022-10-02 13:42 | disposition home or self-care (01) ==
PROVIDERS: PCP Family Medicine; Visit Provider Physician Assistant
DX: M54.50 Low back pain, unspecified (principal); M54.6 Pain in thoracic spine
CPT/HCPCS: 72072; 72110

== ENCOUNTER 2022-10-31 09:52 | Outpatient (CLI) | payer OTHER, SELFPAY ==
--- NOTE | ~2022-10-31 | MR_ITS ---
EXAMINATION: MR lumbar spine wo con DATE: 10/31/2022 10:43 INDICATION: Low back pain. TECHNIQUE: Magnetic resonance imaging (MRI) of the lumbar spine was performed without intravenous con trast. Sequences included sagittal T2-weighted FSE, sagittal T2-weighted FS FSE, sagittal T1-weighted FSE, and axial T2-weighted FSE. COMPARISON: Lumbar spine radiographs 10/02/2022 FINDINGS: Bone alignment is normal. Vertebral body heights are normal. There is mildly decreased disc height at L4-L5 and L5-S1. The distal spinal cord signal intensity is normal. The conus medullaris i s at T12-L1. The following disc levels are specifically discussed: L1-L2: The disc does not extend beyond the endplate margin. There is mild bilateral facet joint osteo arthritis. There is no neural foraminal stenosis. There is no central canal stenosis. L2-L3: The disc is mildly bulging. There is moderate bilateral facet joint osteoarthritis. There is m ild bilateral neural foraminal stenosis. There is no central canal stenosis. L3-L4: The disc does not extend beyond the endplate margin. There is no facet joint osteoarthritis. T here is no neural foraminal stenosis. There is no central canal stenosis. L4-L5: The disc is bulging and has an annular fissure. There is severe bilateral facet joint osteoart hritis. There is mild bilateral neural foraminal stenosis. There is mild central canal stenosis. L5-S1: The disc is bulging and has an annular fissure. There is moderate right and mild left facet sara int osteoarthritis. There is mild bilateral neural foraminal stenosis. There is mild central canal st enosis. IMPRESSION: 1. Mild lumbar spondylosis. Reviewed, dictated and finalized at location A. IMPRESSION: 1. Mild lumbar spondylosis.
== END 2022-10-31 09:53 | disposition home or self-care (01) ==
PROVIDERS: PCP Family Medicine; Visit Provider Physician Assistant
DX: M47.896 Other spondylosis, lumbar region (principal)
CPT/HCPCS: 72148

== ENCOUNTER 2023-02-13 09:13 | Outpatient (CLI) | payer OTHER, SELFPAY ==
--- NOTE | ~2023-02-13 | XR_ITS ---
Clinical Indication: Chronic cough PA and lateral views of the chest: Comparison: 08/04/2020 Findings: The lungs are clear, without evidence of focal consolidation or pleural effusion. Cardiome diastinal silhouette is within normal limits. Bones and soft tissues are unremarkable. Impression: Normal chest. Reviewed, dictated and finalized at location . Impression: Normal chest.
== END 2023-02-13 09:14 | disposition home or self-care (01) ==
PROVIDERS: PCP Family Medicine; Visit Provider Physician Assistant Medical
DX: R05.3 Chronic cough (principal)
CPT/HCPCS: 71046

== ENCOUNTER 2023-05-23 09:38 | Outpatient (CLI) | payer OTHER, SELFPAY ==
[2023-05-23 10:53] LABS: Toxigenic C. Diff NEGATIVE (NEGATIVE)
[2023-05-28 04:10] LABS: H pylori Ag Stool Not Detected (Not Detected)
[2023-06-02 18:48] LABS: Calprotectin, Stool 186 mcg/g
== END 2023-05-23 09:39 | disposition home or self-care (01) ==
LOC: ANHLAB 09:39
PROVIDERS: PCP Family Medicine; Visit Provider Nurse Practitioner
DX: R10.9 Unspecified abdominal pain (principal); R19.4 Change in bowel habit; R63.4 Abnormal weight loss; R79.82 Elevated C-reactive protein (CRP); A04.8 Other specified bacterial intestinal infections
CPT/HCPCS: 83993; 87045; 87177; 87209; 87269; 87338; 87427; 87449; 87493

== ENCOUNTER 2023-05-29 07:57 | Outpatient (CLI) | payer OTHER, SELFPAY ==
--- NOTE | ~2023-05-29 | CT_ITS ---
And EXAMINATION: CT abdomen pelvis w con DATE: 05/29/2023 08:29 INDICATION: Abdominal pain. Abnormal weight loss. TECHNIQUE: Computed tomography (CT) of the abdomen and pelvis was performed with 100 CC Omnipaque 350 intravenous contrast. Automated exposure control and iterative reconstruction technique were employe d. Exam dose: 289.12 mGy-cm total exam DLP. COMPARISON: 05/19/2019 CT chest abdomen pelvis FINDINGS: The lung bases are clear of infiltrate or consolidation. Normal heart size. No pericardial or pleural effusion. Prominent gallbladder distention and common bile duct are again noted, present on 05/19/2019 as well. No gallbladder wall thickening or pericholecystic fluid or fat stranding. Small cyst of the medial segment left hepatic lobe adjacent to the fissure for the ligamentum teres. No hepatic space-occupying mass lesion is noted otherwise. Normal splenic size. No pancreatic mass lesion, calcification or pancreatic ductal dilatation. Normal morphology of the adrenal glands. Occasional small bilateral renal cysts, not significantly changed since 05/19/2019. No urinary tract calculus or hydroureteronephrosis. There is prominent prostate enlargement and calcifications. The urinary bladder appears unremarkable. Normal caliber of the abdominal aorta. No intraperitoneal or retroperitoneal or pelvic mass lesion or adenopathy or ascites. Normal appendix. Diverticulosis of the colon; no CT evidence of diverticulitis. No bowel obstruction, bowel wall thick ening, pneumatosis or intraperitoneal free air. Bilateral fat-containing inguinal hernias, larger on the left. Small fat-containing umbilical hernia. Left L5 pars interarticularis defect. Bilateral hip osteoarthritis. No suspicious osteolytic or osteo blastic lesions. IMPRESSION: Chronic gallbladder distention bile duct prominence since 05/19/2019 Small hepatic and renal cysts Prostate enlargement and calcifications Normal appendix Diverticulosis of the colon Bilateral fat-containing inguinal hernias Reviewed, dictated and finalized at [facility]. Reviewed, dictated and finalized at [facility]. IMPRESSION: Chronic gallbladder distention bile duct prominence since 05/19/20 19 Small hepatic and renal cysts Prostate enlargement and calcifications Normal appendix Diverticulosis of the colon Bilateral fat-containing inguinal hernias
[2023-05-29 08:24] LABS: Estimated Glomerular Filt Rate > 60
== END 2023-05-29 07:58 | disposition home or self-care (01) ==
PROVIDERS: PCP Family Medicine; Visit Provider Nurse Practitioner
DX: R10.9 Unspecified abdominal pain (principal); R19.4 Change in bowel habit; R63.4 Abnormal weight loss; R79.82 Elevated C-reactive protein (CRP); N28.1 Cyst of kidney, acquired; K57.30 Diverticulosis of large intestine without perforation or abscess without bleeding; K40.20 Bilateral inguinal hernia, without obstruction or gangrene, not specified as recurrent
CPT/HCPCS: 74177; Q9967

== ENCOUNTER 2023-06-02 14:23 | Outpatient (CLI) | payer OTHER, SELFPAY ==
[2023-06-02 16:04] LABS: Alanine Aminotransferase 29 U/L (6-50); Albumin Level 4.2 g/dL (3.5-5.1); Alkaline Phosphatase 56 U/L (38-126); Aspartate Amino Transferase 31 U/L (17-59); Bilirubin,Total 0.6 mg/dL (0.2-1.3)
== END 2023-06-02 14:24 | disposition home or self-care (01) ==
LOC: ANHLAB 14:23
PROVIDERS: PCP Family Medicine; Visit Provider Nurse Practitioner
DX: R93.2 Abnormal findings on diagnostic imaging of liver and biliary tract (principal); K83.8 Other specified diseases of biliary tract; R63.4 Abnormal weight loss
CPT/HCPCS: 36415; 80076

== ENCOUNTER 2023-06-09 13:53 | Outpatient (CLI) | payer OTHER, SELFPAY ==
[2023-06-09 14:13] LABS: Basophils Percent Auto 0.4 % (0.2-1.2); Hematocrit 40.7 % (42.0-52.0); Hemoglobin 13.8 g/dL (14.0-18.0); Immature Granulocyte Absolute 0.03 K/mm3 (0.00-0.031); Immature Granulocyte Percent A 0.4 % (0-0.5); Lymphocytes Absolute Auto 2.98 K/mm3 (0.9-3.2); Lymphocytes Percent Auto 36.6 % (18.3-44.2); Mean Corpuscular HGB Conc 33.9 g/dl (32-36); Mean Corpuscular Hemoglobin 30.5 pg (26-34); Mean Platelet Volume 8.3 fl (7.4-10.4); Monocytes Absolute Auto 0.5 K/mm3 (0.1-0.6); Monocytes Percent Auto 5.7 % (2.6-8.5); Neutrophils Absolute Auto 4.6 K/mm3 (1.3-6.7); Neutrophils Percent Auto 56.9 % (45.5-73.1); Platelet Count Result 201 k/mm3 (150-375); Red Blood Count 4.52 M/mm3 (4.6-6.20); Red Cell Distribution Width 12.3 % (11.5-14.5); White Blood Count 8.1 K/mm3 (4.5-10.0)
[2023-06-09 16:54] LABS: Alanine Aminotransferase 28 U/L (6-50); Albumin Level 4.3 g/dL (3.5-5.1); Alkaline Phosphatase 57 U/L (38-126); Anion Gap 11 mmol/L (8-16); Aspartate Amino Transferase 25 U/L (17-59); Bilirubin,Total 0.7 mg/dL (0.2-1.3); Blood Urea Nitrogen 17 mg/dL (9-20); Calcium 9.5 mg/dL (8.4-10.2); Carbon Dioxide 30 mmol/L (22-30); Chloride 99 mmol/L (98-107); Estimated Glomerular Filt Rate > 60; Glucose 204 mg/dL (65-110); Lactate Dehydrogenase 201 U/L (120-246); Potassium 4.3 mmol/L (3.4-5.0); Sodium 140 mmol/L (137-145)
== END 2023-06-09 13:54 | disposition home or self-care (01) ==
PROVIDERS: PCP Family Medicine; Visit Provider Internal Medicine Hematology & Oncology
DX: C91.Z0 Other lymphoid leukemia not having achieved remission (principal)
CPT/HCPCS: 36415; 80053; 83615; 85025

== ENCOUNTER 2023-06-12 08:01 | Outpatient (CLI) | payer OTHER, SELFPAY ==
--- NOTE | ~2023-06-12 | MR_ITS ---
EXAMINATION: MR MRCP wo/w con/w 3D wo ind DATE: 06/12/2023 08:52 INDICATION: Abnormal levels of other serum enzymes. TECHNIQUE: Magnetic resonance imaging (MRI) of the abdomen was performed without and with 13 mL Multi Sushila intravenous contrast. Sequences included coronal T2-weighted FS FSE, coronal T2-weighted FSE, a xial T1-weighted LAVA, coronal FS FIESTA, axial dual-echo T1-weighted SPGR, coronal lava-FLEX, sagitt al T2-weighted FSE, axial T2-weighted FSE, and axial DWI. Thick-slab T2-weighted FSE images were obta ined for magnetic resonance cholangiopancreatography (MRCP). Maximum intensity projection 3-D reconst ructions of the volumetric data were created by the technologist. Postcontrast sequences included cor onal LAVA-flex and time course of axial T1-weighted LAVA. COMPARISON: CT abdomen and pelvis 05/29/2023 FINDINGS: ABDOMEN MRI: There are cysts in the liver measuring up to 5 mm. There is moderate intrahepatic biliar y duct dilatation. The gallbladder is distended and contains gallstones. The spleen is normal. There is a 8 mm cystic lesion in the body of the pancreas that communicates with the main pancreatic duct. No pancreatic duct dilatation. The adrenal glands and kidneys are normal. There are cysts in the kidn eys measuring up to 10 mm on the right. There is diverticulosis of the colon without evidence of dive rticulitis. There are no dilated loops of bowel. There are no pathologically enlarged lymph nodes. Th ere is no free intraperitoneal fluid. ABDOMEN MRCP: The common duct is dilated to 13 mm. There are filling defects in the distal common jeimy e duct measuring up to 4 mm. IMPRESSION: 1. Choledocholithiasis with intrahepatic and extrahepatic biliary duct dilatation and gallbladder dis tention. 2. Cholelithiasis. 3. 8 mm cystic lesion in the pancreas. The differential diagnosis includes pseudocyst, intraductal pa pillary mucinous neoplasm (IPMN), mucinous cystic neoplasm (MCN), serous cystadenoma, and neuroendocr ine tumor. Abdomen MRI without and with contrast is recommended in 2 years. Reviewed, dictated and finalized at location [facility]. BODY STRAIGHTENER IMPRESSION: 1. Choledocholithiasis with intrahepatic and extrahepatic biliary duct dilatati on and gallbladder distention. 2. Cholelithiasis. 3. 8 mm cystic lesion in the pancreas. The differential diagnosis includes pseu docyst, intraductal papillary mucinous neoplasm (IPMN), mucinous cystic neoplas m (MCN), serous cystadenoma, and neuroendocrine tumor. Abdomen MRI without and with contrast is recommended in 2 years.
== END 2023-06-12 08:02 | disposition home or self-care (01) ==
PROVIDERS: PCP Family Medicine; Visit Provider Nurse Practitioner
DX: R74.8 Abnormal levels of other serum enzymes (principal); R93.2 Abnormal findings on diagnostic imaging of liver and biliary tract; K83.8 Other specified diseases of biliary tract; R63.4 Abnormal weight loss; K80.20 Calculus of gallbladder without cholecystitis without obstruction
CPT/HCPCS: 74183; 76376; A9577

== ENCOUNTER 2023-06-26 02:36 | Day surgery (SDC) | payer OTHER, SELFPAY ==
[2023-06-18 12:26] VITALS: BMI 22.9
--- NOTE | 2023-06-24 12:45 | SUR.PREOP ---
Patient called regarding upcoming procedure. Reviewed preop instructions, appointment times, and procedure prep.
[2023-06-26] VITALS (8 sets, daily range): BP systolic 131–160; BP diastolic 82–97; PULSE 61–89; RESP 14–21; TEMP 36.2; O2SAT 97–100; BMI 23.3
--- NOTE | ~2023-06-26 | XR_ITS ---
EXAMINATION: XR ERCP DATE: 06/26/2023 12:37 INDICATION: Choledocholithiasis. TECHNIQUE: 2 spot fluoroscopic images of the right upper quadrant were obtained during endoscopic ret rograde cholangiopancreatography (ERCP). Fluoroscopy exposure time was 99 seconds. COMPARISON: MRCP 06/12/2023 FINDINGS: The endoscope tip is in the second portion of the duodenum. The common duct is dilated. Veena ges demonstrate balloon sweeping of the common duct. IMPRESSION: 1. Balloon sweeping of the dilated common duct. Please refer to the ERCP procedure note for additiona l details. Reviewed, dictated and finalized at location [facility]. ULUS PROFESSOR IMPRESSION: 1. Balloon sweeping of the dilated common duct. Please refer to the ERCP proced ure note for additional details.
[2023-06-26] MEDS: LACTATED RINGERS 1,000 ML 150 ML IV CONT (10:53)
[2023-06-26 11:15] LABS: Prothrombin Time 13.1 Seconds (11.1-14.7)
--- NOTE | 2023-06-26 11:43 | WPDANESEPPF ---
Anes - Initial Pre Proc Eval Procedure: Operation Date: 06/26/23 12:00 Proposed Procedures p Endoscopic Retro Cholangiopancreatogram - Simon Delcid MD Date/Time: 06/26/23 11:43 Surgeon: Simon Delcid MD Pre Op Diagnosis: Specified diseases of biliary tract Patient Data Age: 73 Gender: M Height: 1.68 m Weight: 65.7 kg Last Vital Signs Temp 97.1 F L 06/26/23 10:20 Pulse 89 06/26/23 10:20 Resp 18 06/26/23 10:20 BP 148/89 H 06/26/23 10:20 Pulse Ox 98 06/26/23 10:20 O2 Del Method Room Air 06/26/23 10:20 Allergies Allergy/AdvReac Type Severity Reaction Status Date / Time No Known Drug Allergies Allergy Unknown Unknown Verified 06/26/23 10:31 Home Medications Medication Instructions Recorded Confirmed Type metronidazole 1 % topical gel 1 applic topical DAILY 02/13/23 06/26/23 History (Metrogel) fexofenadine 180 mg tablet 180 mg PO TID 06/13/23 06/26/23 History (Izabella Hivluke) Laboratory Tests 06/26/23 10:49 PT 13.1 Seconds (11.1-14.7) INR 1.0 Patient hx anesthesia problems: none Family hx anesthesia problems: none Results Review: All pre-operative results and documents have been reviewed as part of the pre-operative evaluation. [facility] Past Medical History Medical History Abdominal pain Abnormal CT scan, gallbladder Abnormal weight loss Altered bowel habits Atypical lymphocytosis Belching Choledocholithiasis Diet-controlled type 2 diabetes mellitus Dilation of biliary tract Elevated C-reactive protein (CRP) Fatigue Fever of unknown origin GERD without esophagitis History of COVID-15 March 2022 Hives Pancreatic cyst Surgical History Surgical History History of hernia repair Family History Family History Sibling Leukemia Mother Family history of kidney disease Family history of heart disease in male family member before age 55 Hypertension Father Family history of emphysema Social History Social History Smoking status: Never smoker Second hand tobacco smoke exposure: No Alcohol intake: former Drinks per week: 1 Alcohol use details: Social. Substance use: never Substance use type: does not use and marijuana Lack of Transportation: No Lack of Food: Never True Current Housing: I Have Housing Concerned About Future Housing: No Difficulty Paying Gas/Electric Bills: No Difficulty Paying for Meds: No Currently Unemployed: No Education: Master's Degree or Higher Difficulty w/ Childcare or Family Care: No Living arrangements: other Additional living arrangements comments: with so Occupation/Education: retired Gender identity (if verbalized by the patient): Male Anes - Eval Final PreProcedure Day of Procedure 06/26/23 11:43 Patient weight: normal Heart: regular rate and rhythm Lungs: clear to auscultation Airway: Mallampati scale class II Neurological: alert and oriented Last oral intake: >/= 8 hours ASA classification: II Emergent: no Anesthetic plan: proceed Anesthesia type and monitoring: general ETT and standard monitoring Results Review: All pre-operative results and documents have been reviewed as part of the pre-operative evaluation. Informed Consent: The patient's anesthetic plan and its attendant risks and benefits were discussed with the patient/family/POA. Questions were solicited and answers provided to the satisfaction of the patient/family/POA.
--- NOTE | 2023-06-26 12:01 | PM.HPGS ---
History of Present Illness History of Present Illness Consent: Risks, benefits, and alternatives have been discussed and questions answered. Patient agrees to proceed with procedure. Chief complaint: Specified diseases of biliary tract Narrative: James Donovan is a 73 year old male here for outpatient ercp, work up for weight loss including MRI that showed choledocholithiasis with intrahepatic and extrahepatic biliary duct dilatation and gallbladder distention.. Cholelithiasis. Liver enzymes normal. Review of Systems Constitutional: Constitutional: Denies weakness Eyes: Eyes: Denies blurry vision ENT: Reports Normal hearing present, Denies headache(s) and Denies neck pain Cardiovascular: Cardiovascular: Denies chest pain and Denies dyspnea Respiratory: Respiratory: Denies dyspnea Gastrointestinal: Gastrointestinal: Reports no additional gastrointestinal complaints Genitourinary: Genitourinary: Denies dysuria Musculoskeletal: Musculoskeletal: Denies neck pain Integumentary/Breasts: Skin/Breast: Denies dry skin Neurologic: Reports Normal hearing present, Denies headache(s) and Denies weakness Psychiatric: Psychiatric: Denies anxiety Endocrine: Endocrine: Denies change in body appearance Hematologic/Lymphatic: Hematologic/Lymphatic: Denies easy bleeding Allergic/Immunologic: Allergic/Immunologic: Denies urticaria PMFSH Past Medical History Medical History Abdominal pain Abnormal CT scan, gallbladder Abnormal weight loss Altered bowel habits Atypical lymphocytosis Belching Choledocholithiasis Diet-controlled type 2 diabetes mellitus Dilation of biliary tract Elevated C-reactive protein (CRP) Fatigue Fever of unknown origin GERD without esophagitis History of COVID-15 March 2022 Hives Pancreatic cyst Surgical History Surgical History History of hernia repair Family History Family History Sibling Leukemia Mother Family history of kidney disease Family history of heart disease in male family member before age 55 Hypertension Father Family history of emphysema Social History Social History Smoking status: Never smoker Second hand tobacco smoke exposure: No Alcohol intake: former Drinks per week: 1 Alcohol use details: Social. Substance use: never Substance use type: does not use and marijuana Lack of Transportation: No Lack of Food: Never True Current Housing: I Have Housing Concerned About Future Housing: No Difficulty Paying Gas/Electric Bills: No Difficulty Paying for Meds: No Currently Unemployed: No Education: Master's Degree or Higher Difficulty w/ Childcare or Family Care: No Living arrangements: other Additional living arrangements comments: with so Occupation/Education: retired Gender identity (if verbalized by the patient): Male Meds Home Medications and Allergies Home Medications Medication Instructions Recorded Confirmed Type metronidazole 1 % topical gel 1 applic topical DAILY 02/13/23 06/26/23 History (Metrogel) fexofenadine 180 mg tablet 180 mg PO TID 06/13/23 06/26/23 History (Izabella Hives) Allergies Allergy/AdvReac Type Severity Reaction Status Date / Time No Known Drug Allergies Allergy Unknown Unknown Verified 06/26/23 10:31 Vital Signs Vital Signs - 24 hr 06/26/23 10:20 Temperature 97.1 F L Pulse Rate 89 Respiratory Rate 18 Blood Pressure 148/89 H Pulse Oximetry 98 Oxygen Delivery Room Air Exam Const: General: comfortable and no acute distress HENMT: Face/Nose/Sinus: Normal nares present Eyes: General: appearance normal, both eyes and all related structures Neck: Neck: no JVD Resp: Auscultation: clear to auscultation bilaterally Cardio: Rate: regular r
[2023-06-26] MEDS: INDOMETHACIN 50 MG SUPP.RECT 100 MG RECTAL (12:05)
--- NOTE | 2023-06-26 12:18 | SUR.OPER ---
EGD end 1211 ERCP start 1214
== END 2023-06-26 13:50 | disposition home or self-care (01) ==
PROVIDERS: Internal Medicine Gastroenterology; PCP Family Medicine; Visit Provider Internal Medicine Gastroenterology
PROC: (CPT 43260; principal; 2023-06-26 12:00)
DX: K80.50 Calculus of bile duct without cholangitis or cholecystitis without obstruction (principal); K29.50 Unspecified chronic gastritis without bleeding; K80.20 Calculus of gallbladder without cholecystitis without obstruction; K21.9 Gastro-esophageal reflux disease without esophagitis; E11.9 Type 2 diabetes mellitus without complications; R63.4 Abnormal weight loss; Z68.23 Body mass index [BMI] 23.0-23.9, adult
CPT/HCPCS: 43262; 43264; 43239; 36415; 74329; 85610; 88305; A9270; J0330; J1100; J2405; J2704; J7120; Q9966

== ENCOUNTER 2023-06-29 15:31 | Emergency (ER) | payer OTHER, SELFPAY ==
--- NOTE | 2023-06-29 16:02 | PC.NURSE ---
pt up to desk inquiring about wait time. advised of dept status. states he will come back at a later time
== END 2023-06-29 16:20 | disposition left against medical advice (07) ==
PROVIDERS: PCP Family Medicine
DX: Z53.21 Procedure and treatment not carried out due to patient leaving prior to being seen by health care provider (principal)
CPT/HCPCS: 99199

== ENCOUNTER 2023-08-07 02:08 | Day surgery (SDC) | payer OTHER, SELFPAY ==
[2023-07-14 14:40] VITALS: BMI 22.6
--- NOTE | 2023-08-05 10:20 | SUR.PREOP ---
Patient called regarding upcoming procedure. Reviewed preop instructions, appointment times, and procedure prep.
--- NOTE | 2023-08-07 11:10 | WPDANESEPPF ---
Anes - Initial Pre Proc Eval Procedure: Operation Date: 08/07/23 12:30 Proposed Procedures p Colonoscopy - Simon Delcid MD Date/Time: 08/07/23 11:10 Surgeon: Simon Delcid MD Pre Op Diagnosis: Abnormal weight loss Patient Data Age: 73 Gender: M Height: 1.68 m Weight: 63.6 kg Allergies Allergy/AdvReac Type Severity Reaction Status Date / Time No Known Drug Allergies Allergy Unknown Unknown Verified 08/07/23 11:11 Home Medications Medication Instructions Recorded Confirmed Type metronidazole 1 % topical gel 1 applic topical DAILY 02/13/23 08/07/23 History (Metrogel) fexofenadine 180 mg tablet 180 mg PO TID 06/13/23 08/07/23 History (Izabella Hivluke) Patient hx anesthesia problems: none Family hx anesthesia problems: none Results Review: All pre-operative results and documents have been reviewed as part of the pre-operative evaluation. [facility] Past Medical History Medical History (Updated 07/03/23 @ 14:30 by Maddison Galindo APRN) Abdominal pain Abnormal CT scan, gallbladder Abnormal weight loss Altered bowel habits Atypical lymphocytosis Belching Choledocholithiasis Diet-controlled type 2 diabetes mellitus Dilation of biliary tract Elevated C-reactive protein (CRP) Fatigue Fever of unknown origin GERD without esophagitis History of COVID-15 March 2022 Hives Pancreatic cyst Weight loss Surgical History Surgical History History of hernia repair Family History Family History Sibling Leukemia Mother Family history of kidney disease Family history of heart disease in male family member before age 55 Hypertension Father Family history of emphysema Social History Social History Smoking status: Never smoker Second hand tobacco smoke exposure: No Alcohol intake: current Drinks per week: 1 Alcohol use details: Social. Substance use: never Substance use type: does not use Lack of Transportation: No Lack of Food: Never True Current Housing: I Have Housing Concerned About Future Housing: No Difficulty Paying Gas/Electric Bills: No Difficulty Paying for Meds: No Currently Unemployed: No Education: Master's Degree or Higher Difficulty w/ Childcare or Family Care: No Living arrangements: alone Additional living arrangements comments: with so Occupation/Education: retired Gender identity (if verbalized by the patient): Male Spiritual care concerns: No Anes - Eval Final PreProcedure Day of Procedure 08/07/23 11:10 Patient weight: normal Heart: regular rate and rhythm Lungs: clear to auscultation Airway: Mallampati scale class II Neurological: alert and oriented Last oral intake: >/= 8 hours ASA classification: II Emergent: no Anesthetic plan: proceed Anesthesia type and monitoring: general GIVS and standard monitoring Results Review: All pre-operative results and documents have been reviewed as part of the pre-operative evaluation. Informed Consent: The patient's anesthetic plan and its attendant risks and benefits were discussed with the patient/family/POA. Questions were solicited and answers provided to the satisfaction of the patient/family/POA.
[2023-08-07 11:12] VITALS: BP 112/80; PULSE 103; RESP 18; TEMP 36.8; O2SAT 97; BMI 23.3
--- NOTE | 2023-08-07 11:14 | PM.HPGS ---
History of Present Illness History of Present Illness Consent: Risks, benefits, and alternatives have been discussed and questions answered. Patient agrees to proceed with procedure. Chief complaint: Abnormal weight loss Narrative: James Donovan is a 73 year old male here for colonoscopy, last one 10 years ago, few months ago had weight loss and abdominal discomfort, stool negative for infection, imaging found choledocholithiasis and removed with ercp, lately has been doing ok and denies any diarrhea and actually gained 5 lbs Review of Systems Constitutional: Constitutional: Denies headache(s) and Denies weakness Eyes: Eyes: Denies blurry vision ENT: Reports Normal hearing present, Denies headache(s) and Denies neck pain Cardiovascular: Cardiovascular: Denies chest pain and Denies dyspnea Respiratory: Respiratory: Denies dyspnea Gastrointestinal: Gastrointestinal: Reports no additional gastrointestinal complaints Genitourinary: Genitourinary: Denies dysuria Musculoskeletal: Musculoskeletal: Denies neck pain Integumentary/Breasts: Skin/Breast: Denies dry skin Neurologic: Reports Normal hearing present, Denies headache(s) and Denies weakness Psychiatric: Psychiatric: Denies anxiety Endocrine: Endocrine: Denies change in body appearance Hematologic/Lymphatic: Hematologic/Lymphatic: Denies easy bleeding Allergic/Immunologic: Allergic/Immunologic: Denies urticaria PMFSH Past Medical History Medical History (Updated 07/03/23 @ 14:30 by Maddison Galindo APRN) Abdominal pain Abnormal CT scan, gallbladder Abnormal weight loss Altered bowel habits Atypical lymphocytosis Belching Choledocholithiasis Diet-controlled type 2 diabetes mellitus Dilation of biliary tract Elevated C-reactive protein (CRP) Fatigue Fever of unknown origin GERD without esophagitis History of COVID-15 March 2022 Hives Pancreatic cyst Weight loss Surgical History Surgical History History of hernia repair Family History Family History Sibling Leukemia Mother Family history of kidney disease Family history of heart disease in male family member before age 55 Hypertension Father Family history of emphysema Social History Social History Smoking status: Never smoker Second hand tobacco smoke exposure: No Alcohol intake: current Drinks per week: 1 Alcohol use details: Social. Substance use: never Substance use type: does not use Lack of Transportation: No Lack of Food: Never True Current Housing: I Have Housing Concerned About Future Housing: No Difficulty Paying Gas/Electric Bills: No Difficulty Paying for Meds: No Currently Unemployed: No Education: Master's Degree or Higher Difficulty w/ Childcare or Family Care: No Living arrangements: alone Additional living arrangements comments: with so Occupation/Education: retired Gender identity (if verbalized by the patient): Male Spiritual care concerns: No Meds Home Medications and Allergies Home Medications Medication Instructions Recorded Confirmed Type metronidazole 1 % topical gel 1 applic topical DAILY 02/13/23 08/07/23 History (Metrogel) fexofenadine 180 mg tablet 180 mg PO TID 06/13/23 08/07/23 History (Izabella Hives) Allergies Allergy/AdvReac Type Severity Reaction Status Date / Time No Known Drug Allergies Allergy Unknown Unknown Verified 08/07/23 11:11 Exam Const: General: comfortable and no acute distress HENMT: Face/Nose/Sinus: Normal nares present Eyes: General: appearance normal, both eyes and all related structures Neck: Neck: no JVD Resp: Auscultation: clear to auscultation bilaterally Cardio: Rate: regular rate Rhythm: regular rhythm GI: Inspection: non-distended GI Palp: Yes Soft to palpation Skin: Gene
[2023-08-07] MEDS: LACTATED RINGERS 1,000 ML 150 ML IV CONT (11:22)
[2023-08-07 11:41] VITALS: BP 93/64; PULSE 84; RESP 19; O2SAT 100
[2023-08-07 11:51] VITALS: BP 112/78; PULSE 82; RESP 24; O2SAT 99
[2023-08-07 12:01] VITALS: BP 127/82; PULSE 76; RESP 18; O2SAT 99
== END 2023-08-07 12:08 | disposition home or self-care (01) ==
PROVIDERS: PCP Family Medicine; Visit Provider Internal Medicine Gastroenterology
PROC: 0DJD8ZZ Inspection of Lower Intestinal Tract, Via Natural or Artificial Opening Endoscopic (ICD-10-PCS; CPT 45378; principal; 2023-08-07 12:30)
DX: Z12.11 Encounter for screening for malignant neoplasm of colon (principal); K57.30 Diverticulosis of large intestine without perforation or abscess without bleeding; R63.4 Abnormal weight loss; E11.9 Type 2 diabetes mellitus without complications; K21.9 Gastro-esophageal reflux disease without esophagitis; Z82.49 Family history of ischemic heart disease and other diseases of the circulatory system
CPT/HCPCS: 45378; J2704; J7120

== ENCOUNTER 2023-10-28 10:46 | Outpatient (RCR) | payer OTHER, SELFPAY ==
[2023-10-28 11:00] VITALS: BMI 24.0
[2023-10-28 11:12] VITALS: BMI 24.0
== END 2024-01-13 14:14 | disposition home or self-care (01) ==
LOC: ANHDMC 10:46
PROVIDERS: PCP Family Medicine; Visit Provider Physician Assistant
DX: E11.65 Type 2 diabetes mellitus with hyperglycemia (principal); Z71.3 Dietary counseling and surveillance
CPT/HCPCS: 97802

== ENCOUNTER 2023-12-10 11:32 | Outpatient (CLI) | payer OTHER, SELFPAY ==
[2023-12-10 12:02] LABS: Basophils Percent Auto 0.5 % (0.2-1.2); Eosinophils Percent Auto 0.2 % (0-4.4); Hematocrit 39.9 % (42.0-52.0); Hemoglobin 13.4 g/dL (14.0-18.0); Immature Granulocyte Absolute 0.01 K/mm3 (0.00-0.031); Immature Granulocyte Percent A 0.2 % (0-0.5); Lymphocytes Absolute Auto 3.42 K/mm3 (0.9-3.2); Lymphocytes Percent Auto 51.4 % (18.3-44.2); Mean Corpuscular HGB Conc 33.6 g/dl (32-36); Mean Corpuscular Hemoglobin 30.8 pg (26-34); Mean Corpuscular Volume 91.7 fl (80-100); Mean Platelet Volume 8.1 fl (7.4-10.4); Monocytes Absolute Auto 0.4 K/mm3 (0.1-0.6); Monocytes Percent Auto 6.2 % (2.6-8.5); Neutrophils Absolute Auto 2.8 K/mm3 (1.3-6.7); Neutrophils Percent Auto 41.5 % (45.5-73.1); Platelet Count Result 207 k/mm3 (150-375); Red Blood Count 4.35 M/mm3 (4.6-6.20); Red Cell Distribution Width 12.8 % (11.5-14.5); White Blood Count 6.7 K/mm3 (4.5-10.0)
[2023-12-10 12:06] LABS: Blood Urea Nitrogen 17 mg/dL (8-26); Carbon Dioxide 27 mmol/L (22-30); Chloride 101 mmol/L (98-109); Estimated Glomerular Filt Rate > 60; Glucose 165 mg/dL (70-105); Ionized Calcium (POC) 1.24 mmol/L (1.11-1.31); Potassium 4.2 mmol/L (3.5-4.9); Sodium 141 mmol/L (138-146)
[2023-12-10 18:29] LABS: Alanine Aminotransferase 18 U/L (6-50); Albumin Level 3.9 g/dL (3.5-5.1); Alkaline Phosphatase 52 U/L (38-126); Anion Gap 5 mmol/L (4-12); Aspartate Amino Transferase 26 U/L (17-59); Bilirubin,Total 0.6 mg/dL (0.2-1.3); Blood Urea Nitrogen 18 mg/dL (9-20); Calcium 9.1 mg/dL (8.4-10.2); Carbon Dioxide 28 mmol/L (22-30); Chloride 105 mmol/L (98-107); Estimated Glomerular Filt Rate > 60; Glucose 162 mg/dL (65-110); Lactate Dehydrogenase 181 U/L (120-246); Potassium 4.2 mmol/L (3.4-5.0); Sodium 138 mmol/L (137-145)
== END 2023-12-10 11:33 | disposition home or self-care (01) ==
PROVIDERS: PCP Family Medicine; Visit Provider Internal Medicine Hematology & Oncology
DX: C91.Z0 Other lymphoid leukemia not having achieved remission (principal)
CPT/HCPCS: 36415; 80047; 80053; 83615; 85025

== ENCOUNTER 2024-06-10 08:27 | Outpatient (CLI) | payer OTHER, SELFPAY ==
[2024-06-10 08:44] LABS: Basophils Percent Auto 0.5 % (0.2-1.2); Eosinophils Percent Auto 0.4 % (0-4.4); Hematocrit 41.8 % (42.0-52.0); Hemoglobin 13.9 g/dL (14.0-18.0); Immature Granulocyte Absolute 0.01 K/mm3 (0.00-0.031); Immature Granulocyte Percent A 0.1 % (0-0.5); Lymphocytes Absolute Auto 3.89 K/mm3 (0.9-3.2); Lymphocytes Percent Auto 53.1 % (18.3-44.2); Mean Corpuscular HGB Conc 33.3 g/dl (32-36); Mean Corpuscular Hemoglobin 30.4 pg (26-34); Mean Corpuscular Volume 91.5 fl (80-100); Mean Platelet Volume 8.1 fl (7.4-10.4); Monocytes Absolute Auto 0.5 K/mm3 (0.1-0.6); Monocytes Percent Auto 7.2 % (2.6-8.5); Neutrophils Absolute Auto 2.8 K/mm3 (1.3-6.7); Neutrophils Percent Auto 38.7 % (45.5-73.1); Platelet Count Result 197 k/mm3 (150-375); Red Blood Count 4.57 M/mm3 (4.6-6.20); Red Cell Distribution Width 12.4 % (11.5-14.5); White Blood Count 7.3 K/mm3 (4.5-10.0)
[2024-06-10 10:07] LABS: Alanine Aminotransferase 20 U/L (6-50); Albumin Level 4.2 g/dL (3.5-5.1); Alkaline Phosphatase 55 U/L (38-126); Anion Gap 6 mmol/L (4-12); Aspartate Amino Transferase 32 U/L (17-59); Bilirubin,Total 0.5 mg/dL (0.2-1.3); Blood Urea Nitrogen 19 mg/dL (9-20); Calcium 9.3 mg/dL (8.4-10.2); Carbon Dioxide 31 mmol/L (22-30); Chloride 104 mmol/L (98-107); Estimated Glomerular Filt Rate > 60; Glucose 122 mg/dL (65-110); Lactate Dehydrogenase 195 U/L (120-246); Potassium 4.6 mmol/L (3.4-5.0); Sodium 141 mmol/L (137-145)
== END 2024-06-10 08:28 | disposition home or self-care (01) ==
LOC: ANHLAB 08:28
PROVIDERS: PCP Family Medicine; Visit Provider Internal Medicine Hematology & Oncology
DX: C91.Z0 Other lymphoid leukemia not having achieved remission (principal)
CPT/HCPCS: 36415; 80053; 83615; 85025

== ENCOUNTER 2025-07-04 09:19 | Outpatient (CLI) | payer OTHER, SELFPAY | END 2025-07-04 09:20 | disposition home or self-care (01) | LOC: ANHAUDIO 09:19 | PROVIDERS: PCP Student in an Organized Health Care Education/Training Program; Visit Provider Student in an Organized Health Care Education/Training Program | DX: H90.3 Sensorineural hearing loss, bilateral (principal) | CPT/HCPCS: 92557; 92567 ==